=== PATIENT | female | born 1980 | race Hispanic/Latino ===

== ENCOUNTER 2018-03-15 07:57 | Observation (INO) | payer OTHER ==
[2018-03-12 08:40] VITALS: BMI 23.6
[2018-03-15 08:48] LABS: BASO # 0.1 K/uL (0.0-0.2); BASO % 0.9 % (0.0-2.0); EOS # 0.1 K/uL (0.0-0.7); HEMOGLOBIN 12.6 g/dL (12.0-16.0); LYMPH # 2.8 K/uL (1.0-4.3); LYMPH % 41.9 % (20.0-40.0); MEAN CELL VOLUME 83.3 fl (81.0-99.0); MEAN CORPUSCULAR HEMOGLOBIN 27.3 pg (27.0-31.0); MEAN CORPUSCULAR HGB CONC 32.8 g/dL (33.0-37.0); MEAN PLATELET VOLUME 8.6 fl (7.2-11.7); MONO # 0.4 K/uL (0.0-0.8); MONO % 6.4 % (0.0-10.0); NEUT # 3.3 K/uL (1.8-7.0); NEUT % 49.8 % (50.0-75.0); NRBC % 0.3 % (0.0-0.0); RBC 4.62 Mil/uL (3.80-5.20); RED CELL DISTRIBUTION WIDTH 14.6 % (11.5-14.5); WHITE BLOOD COUNT 6.7 K/uL (4.8-10.8)
[2018-03-15] MEDS ORDERED: Lactated Ringer's 1,000 ML IV ONE ×3 (10:40→14:00)
[2018-03-15] MEDS ORDERED: Propofol 10 mg/ml Inj (20 ML) ONE (11:13)
[2018-03-15] MEDS ORDERED: Midazolam 2 MG/2 ML VIAL ONE (11:14)
[2018-03-15] MEDS ORDERED: ePHEDrine 50 mg/ml Inj ONE (11:14)
[2018-03-15] MEDS ORDERED: Rocuronium 10 mg/ml (5 ml) ONE ×2 (11:15→13:53)
[2018-03-15] MEDS ORDERED: Succinylcholine 200 mg/10 ml Inj IV ONE (11:15)
[2018-03-15] MEDS ORDERED: Lidocaine 4% (Laryng-O-Jet) Kit MM ONE (11:15)
[2018-03-15] MEDS ORDERED: Bupivacaine HCl 0.5% PF (30 ml) Inj ONE (11:24)
[2018-03-15] MEDS ORDERED: Dexamethasone 4 mg/1 ml ONE (12:04)
[2018-03-15] MEDS ORDERED: Desflurane Inhalation Anesthetic Liq (240 ml) ONE (12:22)
[2018-03-15] MEDS ORDERED: Esmolol 100 mg/10ml Inj IV ONE (12:22)
[2018-03-15] MEDS ORDERED: Neostigmine 1:1000 (1 mg/ml) Inj ONE (14:25)
[2018-03-15] MEDS ORDERED: DiphenhydrAMINE 50 mg/ml Inj IVP PRN (14:57)
[2018-03-15] MEDS ORDERED: Lactated Ringer's 1,000 ML IV SCH (15:00)
--- NOTE | 2018-03-15 15:07 | PCM.OP ---
Operative Report - Operative Report Date of Surgery/Procedure: 03/15/18 Time of Surgery/Procedure: 12:00 Surgeon: Dr. Champ Garcia Recycle Driver: Dr. Morales Lemus Anesthesia/Sedation: general/Dr. Stanton Pre-Operative Diagnosis: abdominal pain and endometriosis Post-Operative Diagnosis: same Indication for Surgery: as above Operative Findings: extensive adhesions with deep rectal endometriosis Procedure/Operation Description: 1-Extensive lysis of adhesions 2-Excision deep rectal endometriosis Brief History: This 37 year old woman was already brouight to the OR by Dr. Lemus when he noteds extensive abdomijnal and pelvic adhesions from multiple previous surgeries for endometriosis and deep rectal involvement of endometriosis. Description of the Procedure: The patient had already been taken to the OR by Dr. Lemus 9separate dictation). After taking control of the robotic console the adhesions were lysed from the anterior abdominal wall, lateral side wall on the left and deep to the pelvis. Using blunt and sharp dissection with the aid of electrocautery the adhesions were meticulously lysed with particular attention to hemostasis. This exposed a larger dep rectal lesion at the level of the recto/vaginal/cervical fold. The cervix wand vagina were first lysed allowing the rectum to be mobilized anteriorly. The lesion was approxmately 2.5 cm in circumference. The lesion was incised with electrocautery circumferentially and then with blunt and sharp dissection it was excised en-bloc and sent separately to pathology. Hemostasis was deemed adequate. The operation was then turned over to Dr. Lemus (separate dictation). Estimated Blood Loss: 50 cc Complications: none Specimen: rectal endometrirosis Discharge & Condition: stable
[2018-03-15] MEDS: HYDROmorphone 0.5 mg/0.5 ml ISec IVP PRN ×5 (15:10→22:48)
[2018-03-15] MEDS ORDERED: Oxycodone/Acetaminophen 5/325 mg Tab PO PRN (15:27)
[2018-03-15] MEDS ORDERED: ceFAZolin 1 GM in Sodium Chloride 0.9% 100 ML IVPB SCH (17:00)
[2018-03-15] MEDS: ceFAZolin 1 GM in Sodium Chloride 0.9% 100 ML IVPB SCH (20:48)
[2018-03-15] MEDS ORDERED: Venlafaxine 37.5 mg ER Cap PO SCH (21:00)
[2018-03-16] MEDS: ceFAZolin 1 GM in Sodium Chloride 0.9% 100 ML IVPB SCH (03:36)
[2018-03-16 05:46] VITALS: O2SAT 100
[2018-03-16] MEDS ORDERED: Levothyroxine 75 MCG TAB PO SCH (06:30)
--- NOTE | 2018-03-16 07:11 | CP.PCM.PN ---
Subjective - Date & Time of Evaluation Date of Evaluation: 03/16/18 Time of Evaluation: 06:45 - Subjective Subjective: Surgery: Dr. Garcia Patient seen and examined this am at bedside. She has no complainats and is tolerating her diet well. She has voided ands is passing flatus but has not yet had BM. She otherwise denies f/c, n/v, MALCOLM , CP, SOB, abdominal pain and extremity pain. Objective - Vital Signs/Intake and Output Vital Signs (last 24 hours): Temp Pulse Resp BP Pulse Ox 98.4 F 90 17 106/64 100 03/16/18 05:00 03/16/18 05:00 03/16/18 05:00 03/16/18 05:00 03/16/18 05:00 Intake and Output: 03/16/18 03/16/18 06:59 18:59 Output Total 550 Balance -550 - Medications Medications: Current Medications Hydromorphone HCl (Dilaudid) 0.5 mg IVP Q10M PRN PRN Reason: Pain, moderate (4-7) Last Admin: 03/15/18 22:48 Dose: 0.5 mg Hydromorphone HCl (Dilaudid) 0.5 mg IVP Q4 PRN PRN Reason: Pain, severe (8-10) Last Admin: 03/16/18 03:20 Dose: 0.5 mg Lactated Ringer's (Lactated Ringer's) 1,000 mls @ 125 mls/hr IV .Q8H [facility] Last Admin: 03/15/18 20:50 Dose: 125 mls/hr Ibuprofen (Motrin Tab) 600 mg PO 0000,0600,1200,1800 [facility] Last Admin: 03/16/18 06:17 Dose: 600 mg Levothyroxine Sodium (Synthroid) 75 mcg PO DAILY@0630 [facility] Last Admin: 03/16/18 06:16 Dose: 75 mcg Ondansetron HCl (Zofran Inj) 4 mg IVP Q4 PRN PRN Reason: Nausea/Vomiting Oxycodone/Acetaminophen (Percocet 5/325 Mg Tab) 2 tab PO Q4 PRN PRN Reason: Pain, moderate (4-7) Stop: 03/18/18 15:28 Pantoprazole Sodium (Protonix Inj) 40 mg IVP DAILY [facility] Venlafaxine HCl (Effexor Xr) 37.5 mg PO DAILY@2100 [facility] Last Admin: 03/15/18 21:15 Dose: 37.5 mg - Labs Labs: 03/15/18 08:42 - Constitutional Appears: Well, Non-toxic, No Acute Distress - Head Exam Head Exam: ATRAUMATIC, NORMOCEPHALIC - Eye Exam Eye Exam: EOMI - ENT Exam ENT Exam: Mucous Membranes Moist - Respiratory Exam Respiratory Exam: NORMAL BREATHING PATTERN - Cardiovascular Exam Cardiovascular Exam: REGULAR RHYTHM - GI/Abdominal Exam GI & Abdominal Exam: Soft. absent: Distended, Firm, Guarding, Tenderness Additional comments: sterile surgical dressings in place cdi with no strikethrough - Extremities Exam Extremities Exam: Normal Capillary Refill. absent: Calf Tenderness, Pedal Edema - Neurological Exam Neurological Exam: Alert, Awake, Oriented x3 - Psychiatric Exam Psychiatric exam: Normal Affect, Normal Mood - Skin Skin Exam: Dry, Intact, Normal Color, Warm Additional comments: sterile dressings in placed cdi no strike through Assessment and Plan - Assessment and Plan (Free Text) Assessment: 37 uyr old female POD 1 s/p KRISTA for endometriosis Plan: c/w regular diet patient cleared for D/C if tolerating diet will d/w Dr. Jose Bowden, PGY 1
--- NOTE | 2018-03-16 07:57 | CP.PCM.DIS ---
Provider - Provider Date of Admission: 03/15/18 15:23 Attending physician: Morales Lemus Time Spent in preparation of Discharge (in minutes): 45 Hospital Course - Lab Results Lab Results: Most Recent Lab Values WBC 6.7 K/uL (4.8-10.8) 11 08:42 RBC 4.62 Mil/uL (3.80-5.20) 11 08:42 Hgb 12.6 g/dL (12.0-16.0) 11 08:42 Hct 38.4 % (34.0-47.0) 03/15/18 08:42 MCV 83.3 fl (81.0-99.0) 03/15/18 08:42 MCH 27.3 pg (27.0-31.0) 03/15/18 08:42 MCHC 32.8 g/dL (33.0-37.0) L 03/15/18 08:42 RDW 14.6 % (11.5-14.5) H 03/15/18 08:42 Plt Count 309 K/uL (130-400) 03/15/18 08:42 MPV 8.6 fl (7.2-11.7) 03/15/18 08:42 Neut % (Auto) 49.8 % (50.0-75.0) L 03/15/18 08:42 Lymph % (Auto) 41.9 % (20.0-40.0) H 03/15/18 08:42 Harrison % (Auto) 6.4 % (0.0-10.0) 03/15/18 08:42 Eos % (Auto) 1.0 % (0.0-4.0) 03/15/18 08:42 Baso % (Auto) 0.9 % (0.0-2.0) 03/15/18 08:42 Neut # (Auto) 3.3 K/uL (1.8-7.0) 03/15/18 08:42 Lymph # (Auto) 2.8 K/uL (1.0-4.3) 03/15/18 08:42 Harrison # (Auto) 0.4 K/uL (0.0-0.8) 03/15/18 08:42 Eos # (Auto) 0.1 K/uL (0.0-0.7) 03/15/18 08:42 Baso # (Auto) 0.1 K/uL (0.0-0.2) 03/15/18 08:42 Blood Type O POSITIVE 03/15/18 08:42 Blood Type Confirm O POSITIVE 03/15/18 08:56 Antibody Screen Negative 03/15/18 08:42 BBK History Checked No verified bt 03/15/18 08:42 - Hospital Course Hospital Course: Patient was admitted through same day surgery for elective procedure, lysis of adhesions. Procedure had no complications and postoperative course was uncomplicated. Patient has no complaints at this time and is cleared for discharge to home. - Date & Time of H&P Date of H&P: 03/16/18 Time of H&P: 06:55 Discharge Exam - Head Exam Head Exam: ATRAUMATIC, NORMOCEPHALIC - Eye Exam Eye Exam: EOMI, Normal appearance - ENT Exam ENT Exam: Mucous Membranes Moist - Respiratory Exam Respiratory Exam: NORMAL BREATHING PATTERN - Cardiovascular Exam Cardiovascular Exam: REGULAR RHYTHM - GI/Abdominal Exam GI & Abdominal Exam: Soft. absent: Distended, Guarding, Tenderness - Extremities Exam Extremities exam: normal capillary refill, pedal pulses present - Neurological Exam Neurological exam: Alert, Oriented x3 - Psychiatric Exam Psychiatric exam: Normal Affect, Normal Mood - Skin Skin Exam: Dry, Intact, Normal Color, Warm Additional comments: surgical dressings in place cdi no strike through Discharge Plan - Follow Up Plan Condition: GOOD Disposition: HOME/ ROUTINE Instructions: Robot-Assisted Surgery Additional Instructions: Follow up with Dr Blanco 1-2 weeks. Call doctor for fever above 100.4/excessive pain or vomiting/any medical concerns. May shower tomorrow 03/17/18 -no soaking in tub.
[2018-03-16 08:56] VITALS: BP 121/75; PULSE 102; RESP 18; TEMP 98.9
--- NOTE | 2018-03-16 13:35 | OP ---
PROCEDURE DATE: 03/15/2018 SURGEON: Morales Lemus MD VELVET STEAMER: Champ Garcia MD, Hae, Lee ANESTHESIOLOGIST: Alisa Stanton MD TYPE OF ANESTHESIA: General endotracheal. PREOPERATIVE DIAGNOSES: 1. Incapacitating pelvic pain. 2. Incapacitating abdominal pain. 3. Abnormal uterine bleeding. 4. History of pelvic endometriosis. 5. History of previously failed medical and surgical therapy. 6. Gastrointestinal and genitourinary symptoms. 7. Rule out interstitial cystitis. 8. History of severe endometriosis and pelvic adhesions POSTOPERATIVE DIAGNOSES: 1. Incapacitating pelvic pain. 2. Incapacitating abdominal pain. 3. Abnormal uterine bleeding. 4. History of pelvic endometriosis. 5. History of previously failed medical and surgical therapy. 6. History of severe endometriosis and pelvic adhesions. 7. Gastrointestinal and genitourinary symptoms. 8. stage 4 endometriosis 9. Mild ureteral distention. 10: left ovarian endometrioma PROCEDURES PERFORMED: 1. Exam under anesthesia. 2. Video assisted hysteroscopy. 3. Cystoscopy. 4. Bilateral ureteral catheterization and injection of IC-Green dye. 5. Robotic da Jason operative laparoscopy. 6. Treatment of endometriosis. 7. Excision of endometriosis. 8. Bilateral ureterolysis. 9. Bilateral ovariolysis. 10: right ovariopexy 11: left ovarian cystectomy Dr Garcia : lusis of adhesions and excision of rectal endometriosis COMPLICATIONS: None. SAMPLES SENT: 1. Left Uterosacral l endometriosis. 2. Left periureteral endometriosis. 3. Right periureteral endometriosis. 4. Right uterosacral endometriosis. 5. Left and right ovarian fossa endometriosis. 6. rectal endometriosis 7. Posterior cervical endometriosis. 8. Rectal endometriosis, anterior. 9) Left ovarian endometrioma INDICATION FOR THE PROCEDURE AND CONSENT: The patient had a long history of pelvic pain, dysmenorrhea, dyspareunia, abdominal pain, and bladder pain. The patient had been thoroughly evaluated and counseled regarding the pros and cons of the procedure, the reasonable alternatives, and possible complications. She understood and accepted the risks involved. Literature was provided to the patient. The patient was understanding and given her history and per surgical exam, she was at high risk in an average patient. She accepted all the risks involved, and all the questions had been answered to her satisfaction. FINDINGS OF SURGERY: Genitalia: Normal external genitalia, cervix without lesion and polyps. Hysteroscopy: Hysteroscopy shows a clear uterine cavity with no polyps or masses noticed. Cystoscopy: The cystoscopy was performed to rule out endometriosis and also any interstitial cystitis and also injury. The bladder was normal with no evidence of stone, trigonitis, or cystitis. A positive jet flow was identified in both ureters. Laparoscopy: The upper abdomen appeared to be normal. Gallbladder was normal. Liver edges appeared to be normal. Ascending colon and transverse were normal. There was evidence of massive adhesions involving the omentum . Also fibrosis, and endometriosis of the rectovaginal and pelvic sidewalls. The rectum was severely adhesrent to the posterior aspet of the cervix. There was a left sided endometrioma. Both ovaries were involved with very significant fibrosis. . Both fallopian tubes appeared to be patent, although there was evidence of inflammation on the serosal surface of both fallopian tubes, and there was slight conglutination of both fimbriated ends although they both appeared to be functional. There was also evidence of mild hydroureters. DESCRIPTION OF THE PROCEDURE: Initiation of the case: After adequate anesthesia was obtained, the patient was placed in the dorsal lithotomy position, and with extreme care, placement of the patient with hyperextension and hyperflexing of the hips. At this point, the patient was prepped and draped. The surgeon was gowned and gloved. A timeout was taken according to the hospital procedure and the procedure was started. At this point, we performed cystoscopy, bilateral ureteral catheterization. A cystoscope was inserted into the bladder under direct visualization and the bladder was visualized. The bladder was free of lesions and tumors. There was no evidence of interstitial cystitis, and there was only mild amount of trigonitis. At this point, both ureters were identified and appeared to be in their normal anatomical position. At this point, utilizing an open 5-Beninese open-ended catheter, the left ureter was catheterized all the way to the distal ureter, and 5 mL of IC-Green was injected into this ureter. Similarly, the contralateral ureter was catheterized all the way to the distal ureter, and 5 mL of IC-Green was injected into the distal ureter. At this point, the stents were removed, and the cystoscope was removed, and the 16-Beninese Santizo was inserted into the bladder. At this point, we proceeded with a hysteroscopy. A speculum was placed into vagina, and the anterior lip of the cervix was grasped. The cervix was dilated, and a hysteroscope was inserted into the cavity. The cavity appeared to be of normal size with no evidence of polyps, cysts, adenomyosis, or fibroids. At this point, we proceeded with placement of a trocar and docking of the da Jason Xi robot. The surgeon was re-gowned and gloved, and open laparoscopy was performed by making incision in the umbilicus and the fascia was incised. The peritoneum was entered in a blunt fashion, and the cannula was inserted under direct visualization. The abdomen was insufflated, and under direct visualization, three additional ports were inserted in the left upper quadrant, left mid quadrant, and right upper quadrant. At this point, the da Jason Xi robot was brought into the field and docked, and the instruments were inserted under direct visualization. All this with extreme care not to injure the bowel or another area. As per dictation, the upper abdomen appeared to be normal with no evidence of any lesions. At this point, we proceeded with extensive lysis of adhesions ( to be dictated separately by dr garcia) At this point, we proceeded with a left ureterolysis. The ureter appeared to be dilated and was clearly identified utilizing IC-Green fluorescent technology. Anesthesia was made in the peritoneum at the top of the pelvic brim, and the incision was then carried down all the way opening the peritoneum all the way down from the pelvic brim, all the way down to the ovarian fossa, extending the incision below the ovary. It was a progressive dissection where the ureter was progressively lateralized and peritoneum was medialized, thus freeing the ureter all the way down to the cross of the uterine vessels. After this was done, the ureter was freed and lateralized, and a larger peritoneum which had been opened, was excised, and sent to pathology. At this point, with the aid of very slow process, I was able to elevate the ovary and proceed with ovariolysis. At this point, we proceeded with a left ovariolysis. The left ovary was adherent to the posterior aspect of the uterus. It was gently dissected in a step by step way. It was peeled off, the ovarian fossa, andan area of extensive fibrosis and endometriosis was exposed. At this point, we proceeded with a right ureterolysis. The ureter was identified again utilizing fluorescent technology on the right hand side and retroperitoneal space was entered, and a full dissection was performed,entering the retroperitoneal space and dissecting the ureter, removing the ureter laterally and the peritoneum medially. A full dissection was performed all the way down to the ovarian fossa and the crossing of the uterine arteries. An area of peritoneum containing endometriosis was dissected and sent to Pathology. At this point, we proceeded with a right ovariolysis. The right ovary was adherent to the peritoneum. It was gently elevated progressively, and dissected off from the peritoneal area. All this done with extreme care to preserve vascularization to the ovary.At this point, we proceeded with a right ovariopexy using 2.o suture At this point, we proceeded with treatment of endometriosis and excision of endometriosis. On the left hand side, fibrosis, especially in the left ovarian fossa was excised. In a very progressive step by step fashion, we dissected off fibrosis containing endometriosis and freed up the whole area. The ureters which had been lateralized. Areas of fibrosis and endometriosis were also identified in the posterior cul-de-sac and in the rectovaginal space which was also affected with endometriosis and fibrosis. At this point, we proceeded with the excision of perirectal endometriosis. The rectovaginal area had significant fibrosis and additional endometriosis was dissected from the posterior aspect of the uterus, and the rectovaginal space was entered at the level of the peritoneal reflection. All this done making sure that no damage to the rectum was performed. At this point, endometriosis was also excised from the right uterosacral area which also was affected by fibrosis and endometriosis. At this point, we proceeded with a left excision of endometrioma the endometrioma capsule was gently peeled off the ovary without damaging or devascularizing the ovary At this point the console was handed over to Dr. Garcia from General surgery who proceeded with the excision of anterior rectal endometriosis He will dictate that separately. At this point, it was checked for hemostasis and appeared to be excellent. Both fallopian tubes were in good condition and patent. At this point we proceeded with destruction of inflammatory areas utilizing the j-plasma energy device. After he was done we checked for hemostasis and organ integrity and all was normal. At this point, the da Jason Xi robot was removed. The abdomen was desufflated, and the incisions were closed in layers with 0 PDS for the fascia and 4-0 Monocryl for the skin. At the end of the procedure, all tips and instrument counts were correct. The patient tolerated the procedure well and was taken to the recovery room in excellent condition. Mariah GAO, Morales COLEMAN
== END 2018-03-16 09:16 | disposition home or self-care (01) ==
LOC: H.OPSURG 07:57 → H.PEDS 15:23
PROVIDERS: ADMIT Obstetrics & Gynecology Reproductive Endocrinology; ATTEND Obstetrics & Gynecology Reproductive Endocrinology
DX: K66.0 Peritoneal adhesions (postprocedural) (postinfection) (principal); E03.9 Hypothyroidism, unspecified; N80.5 Endometriosis of intestine; N80.3 Endometriosis of pelvic peritoneum; N93.9 Abnormal uterine and vaginal bleeding, unspecified; N80.1 Endometriosis of ovary; N80.0 Endometriosis of uterus; N13.4 Hydroureter
CPT/HCPCS: 36415; 45171; 52005; 58662; 85025; 86850; 86900; 88305; 96374; 96375; C1729; G0378; J0330; J0690; J1100; J1170; J2001; J2250; J2405; J2704; J2710; J3010; J7030; J7120